=== PATIENT | female | born 1975 ===

== ENCOUNTER 2019-07-02 07:36 | Day surgery (SDC) | payer OTHER ==
[~2019-07-02 07:36] MED LIST: SYNTHROID100 MCG PO
[2019-07-02] MEDS ORDERED: PERCOCET 5-3251 EACH PO (12:23)
[2019-07-02] MEDS ORDERED: ZITHROMAX TRI-500 MG PO (12:23)
== END 2019-07-02 17:10 | disposition home or self-care (01) ==
LOC: CIR.AMB 07:36 → ADM 13:00 → CIR.AMB 13:00
DX: C54.1 Malignant neoplasm of endometrium (principal)

== ENCOUNTER 2024-12-03 06:32 | Day surgery (SDC) | payer OTHER ==
[~2024-12-03 06:32] MED LIST changes: +PERCOCET 5-3251 EACH PO; +ZITHROMAX TRI-500 MG PO
[2024-12-03] MEDS ORDERED: MIDAZOLAM HCL 2 MG/2 ML VIAL IV ONE (13:00)
[2024-12-03] MEDS ORDERED: DIPHENHYDRAMINE HCL 50 MG/ML VIAL 1ML IV ONE (13:00)
[2024-12-03] MEDS ORDERED: fentaNYL CITRATE 50 MCG/ML AMPUL IV ONE (13:00)
== END 2024-12-03 14:35 | disposition home or self-care (01) ==
LOC: AMB-ENDOS 06:32
PROVIDERS: ATTEND Surgery
DX: K57.30 Diverticulosis of large intestine without perforation or abscess without bleeding (principal); R19.4 Change in bowel habit; K62.5 Hemorrhage of anus and rectum; Z88.0 Allergy status to penicillin; Z88.6 Allergy status to analgesic agent; Z80.0 Family history of malignant neoplasm of digestive organs